=== PATIENT | male | born 1970 | race Caucasian/White ===

== ENCOUNTER 2019-07-22 12:13 | Emergency (ER) | payer BC, SELFPAY ==
[2019-07-22 12:17] VITALS: BP 131/84; PULSE 62; RESP 18; TEMP 37.1; O2SAT 99
--- NOTE | 2019-07-22 13:01 | ED.GENADUL_ITS ---
Discharge Plan Disposition Patient Disposition: HOME Condition: Stable Discharge Details Chief Complaint: RespSymp Clinical Impression: Viral infection Primary Care Provider: Fortino Parks ED Provider: Arely Prince Home Meds and New Rx's Prescriptions: New albuterol sulfate [Proventil HFA] 90 mcg/actuation HFA aerosol inhaler 2 puff IH Q6H PRNQty: 8.5 RF: 0 Discharge Instructions Instructions: Respiratory Care (GEN) Additional Instructions: Drink plenty of fluids. Rest activities as tolerated. Use Tylenol for fever control if needed. Inhaler if needed for shortness of breath or wheezing as discussed. We presume you could have covid 19 based on your symptoms however we agreed to defer testing at this time. Plan to convalesce at home for the next 2 weeks. Avoid exposing any other persons. Frequently handwashing at home and clean frequently touched objects, consider avoiding unnecessary exposure to your housemate. Your vital signs are normal at this time. For any respiratory difficulty, shortness of breath, alarming or worsening symptoms have immediate reevaluation in the emergency room as discussed. Feel free to reach out to your primary care doctor over the phone. Return for any worsening, alarming symptoms if needed sooner as discussed Stand Alone Forms: Work Release Medical Decision Making This is a 48-year-old patient presenting to the emergency room for onset of fever which began yesterday and cough. Patient reports dry cough with no production. Patient is concerned as his temperature was 100.1. Patient does report mild shortness of breath noted today. Patient denies any increase in respiratory effort, denies wheezing. Patient reports he thought the area around his lips was somewhat blue which she was alarmed by and came to the emergency room. Patient presents in no apparent distress at this time. Patient has normal respiratory effort. Patient concerned with the possibility of Covid 19. Patient denies associated GI symptoms. Patient denies headache or dizziness. No associated chest or back pain. Patient is a smoker but has no other medical problems. On physical exam patient has mild pharyngeal erythema is in no apparent distress breath sounds are clear and equal with no associated rhonchi or rales. Patient's vital signs reviewed and normal. We discussed Covid t esting and chest x-ray. Patient does not feel he needs Covid testing at this time as given our conversation and local community spread I feel patient clinically has symptoms consistent with mild covert infection, with no significant respiratory distress at this time. Patient was offered a chest x- ray to rule out possible developing pneumonia however does have clear breath sounds and again vital signs are normal. Patient declines chest x-ray at this time. Would prefer convalesce at his home for the next 2 weeks, conservative treatments in addition to inhaler which we discussed use of. Discussed alarming symptoms and signs for which patient should have immediate return. Patient fully understands recommendations as well as precautions for which she should return. Vital signs rechecked to be sure they were accurate. Again vital signs reviewed and normal. Plan to discharge patient home at this time with a work note for the next 2 weeks and plan of convalescence and conservative treatments. HPI General Date/Time Provider Initiated Documentation: 07/22/19 12:24 . HPI Narrative: This is a 48-year-old patient presenting to the emergency room for complaints of cough and fever. Patient reports onset of fever yesterday temperature noted 100.1. Patient reports cough with some associated shortness of breath. Patient denies significant difficulty breathing or increased respiratory effort. Patient is a smoker. Does report mild wheezing. Patient denies any associated headaches or dizziness. Denies significant body aches. No nasal congestion or sore throat. Patient denies chest pain. Patient denies any abdominal pain, nausea, vomiting or diarrhea. Has been eating and drinking without difficulty. 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 Did go to work this morning feeling feverish. Patient denies any obvious exposures for Covid, denies any recent travel. Patient reports cough is nonproductive. Denies back pain. Patient has no other concerns or complaints at this time. Concerned the possibility of covid. Related Data Home Medications Medication Instructions Recorded Confirmed albuterol sulfate [Proventil HFA] 2 puff IH Q6H PRN #8.5 gm 07/22/19 Previous Rx's Medication Instructions Recorded albuterol sulfate [Proventil HFA] 2 puff IH Q6H PRN #8.5 gm 07/22/19 Allergies Allergy/AdvReac Type Severity Reaction Status Date / Time No Known Allergies Allergy Unverified 07/22/19 12:25 General Stated Complaint: RespSymp JUAN: 3 Review of Systems All systems reviewed & are unremarkable except as noted in HPI and below Constitutional Constitutional: Denies chills, Denies fatigue, Reports fever(s), Denies headache(s), Denies lethargy, Reports malaise and Denies poor appetite ENT Ears, Nose, Mouth, and Throat: Denies vertigo, Denies dizziness, Denies headache(s), Denies nasal congestion, Denies sinus pain, Denies sinus pressure and Denies sore throat Cardiovascular Cardiovascular: Denies chest pain and Reports dyspnea (mild) Respiratory Respiratory: Reports cough, Denies pain on inspiration, Denies pain with cough, Reports dyspnea (mild) and Denies wheezing Gastrointestinal Gastrointestinal: Denies abdominal pain, Denies diarrhea, Denies nausea and Denies vomiting Genitourinary Genitourinary: Denies urinary frequency, Denies urinary hesitancy and Denies urinary urgency Musculoskeletal Musculoskeletal: Denies back pain and Denies myalgias Neurologic Neurologic: Denies vertigo, Denies dizziness and Denies headache(s) Endocrine Endocrine: Denies fatigue Allergic/Immunologic Allergic/Immunologic: Denies wheezing [facility] Social History Smoking/Tobacco Use Status: Current every day Tobacco Type: cigarettes Drug use: Occasionally Substance use type: marijuana Do you feel safe at home: Yes Do you feel safe in your relationship?: Yes Exam Narrative Exam Narrative: CONST: Healthy appearing patient, in no acute distress. Well hydrated. Alert and oriented. HENMT: Head nomocephalic, normal to inspection. Atraumatic. Hearing grossly normal. Mild pharyngeal erythema, no exudates. No significant pharyngeal swelling, no tonsillar swelling. EYES: General normal appearance. Alignment normal. Eyelids normal. Conjunctiva normal. NECK: Normal visual inspection. FROM. Trachea midline. No Midline tenderness. Cervical lymphadenopathy present prominent lymph node noted on the right CHEST: Normal insepection of the chest. RESP: Normal respiratory effort. Speaking full sentences. No cough. No audible wheezing. No retractions. Breath sounds are clear, full and equal bilaterally. No wheezing, rhonchi or rales. CARDIO: No JVD. No murmur, regular rate and rhythm SKIN: Normal. Dry. No rashes. NEURO: Alert and awake. Speech clear. PSYCH: Normal affect. Cooperative. Course Vital Signs Vital signs: Vital Signs Temperature 37.1 C 07/22/19 12:17 Pulse 62 07/22/19 12:17 Respiratory Rate 18 07/22/19 12:17 Blood Pressure 131/84 07/22/19 12:17 Temperature 37.1 C 07/22/19 12:17 Temperature Source Skin 07/22/19 12:17 Pulse 62 07/22/19 12:17 Respiratory Rate 18 07/22/19 12:17 Respiratory Effort 07/22/19 12:24 Respiratory Depth Normal 07/22/19 12:24 Blood Pressure 131/84 07/22/19 12:17 Blood Pressure Position Sitting 07/22/19 12:17 Oxygen Delivery Method Room Air 07/22/19 12:17 Oxygen Flow Rate 0 07/22/19 12:17
[2019-07-22 13:09] VITALS: BP 124/75; PULSE 56; RESP 18; TEMP 36.7; O2SAT 97
== END 2019-07-22 13:29 | disposition home or self-care (01) ==
PROVIDERS: Emergency Provider Physician Assistant; PCP Family Medicine
DX: R50.9 Fever, unspecified (principal); R05 Cough; R06.02 Shortness of breath; B34.9 Viral infection, unspecified; F17.210 Nicotine dependence, cigarettes, uncomplicated
CPT/HCPCS: 99283